=== PATIENT | male | born 2000 | race Caucasian/White ===

== ENCOUNTER 2022-11-16 18:13 | Emergency (ER) | payer SELFPAY ==
[2022-11-16] VITALS (12 sets, daily range): BP systolic 131–148; BP diastolic 88–101; PULSE 69–93; RESP 20; O2SAT 94–99
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
[2022-11-16] MEDS: HYDROmorphone 0.5 mg/0.5 ml inj IVP (19:27)
[2022-11-16 19:41] LABS: Basophils Absolute Auto 0.02 K/uL (0.00-0.30); Basophils Percent Auto 0.3 % (0.0-3.0); Eosinophils Absolute Auto 0.04 K/uL (0.00-0.50); Eosinophils Percent Auto 0.6 % (0.0-7.0); Hematocrit 45.1 % (37.0-53.0); Hemoglobin* 15.3 gm/dL (13.5-17.5); Immature Granulocytes Abs Auto 0.01 K/uL (0.00-0.30); Immature Granulocytes Pct Auto 0.1 %; Lymphocytes Absolute Auto 1.73 K/uL (0.90-2.90); Lymphocytes Percent Auto 24.1 % (20-44); Mean Corpuscular HGB Conc 34 gm/dL (32-36); Mean Corpuscular Hemoglobin 31 pg (26-34); Mean Corpuscular Volume 92 fL (80-100); Monocytes Percent Auto 6.3 % (0.0-11.0); Neutrophils Absolute Auto 4.92 K/uL (1.7-7.0); Neutrophils Percent Auto 68.6 % (42.0-72.0); Platelet Count* 193 K/uL (140-440); RDW Coefficient of Variation % 12.1 % (11.5-15.5); White Blood Count* 7.17 K/uL (4.50-11.00)
[2022-11-16 19:42] LABS: Slide Review Reflex No
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
[2022-11-16 20:02] LABS: Chloride* 98 mmol/L (96-114); Sodium* 136 mmol/L (135-149)
[2022-11-16 20:03] LABS: Potassium* 3.9 mmol/L (3.6-5.1)
[2022-11-16 20:05] LABS: Creatinine* 0.8 mg/dL (0.5-1.5); Estimated Glomerular Filt Rate 127 ml/min
[2022-11-16 20:06] LABS: Anion Gap 12 mEq/L (7-15); Blood Urea Nitrogen* 13 mg/dL (5-24); Calcium* 9.1 mg/dL (8.4-10.6); Carbon Dioxide* 26 mmol/L (20-32); Glucose* 93 mg/dL (60-115)
== END 2022-11-16 21:17 | disposition home or self-care (01) ==
PROVIDERS: Emergency Provider Emergency Medicine Emergency Medical Services
DX: T14.8XXA Other injury of unspecified body region, initial encounter (principal); V23.49XA Other motorcycle driver injured in collision with car, pick-up truck or van in traffic accident, initial encounter
CPT/HCPCS: 36415; 70450; 71260; 72125; 73030; 73080; 73110; 73562; 73630; 74177; 80048; 85025; 93005; 96374; 99284; 99285; 99291; G0390; J1170; Q9967